=== PATIENT | male | born 1960 | race Caucasian/White ===

== ENCOUNTER 2016-12-11 10:40 | Emergency (ER) | payer MEDICAID ==
[~2016-12-11] VITALS: Ht 190.5 cm; Wt 71.2 kg
[~2016-12-11 10:40] MED LIST: ALBUTEROL PO; CALC1CAP8 PO; CHOL100018 PO; FURO20TA3 PO; LACT10SO28 PO; LACT1CAP35 PO; MULT-6 PO; NADO20TA PO; OMEP40CA6 PO; SPIR100T2 PO; SPIR50TA2 PO
[2016-12-11 10:58] VITALS: BP 102/68
[2016-12-11] MEDS ORDERED: KETOROLAC 30 MG/1 ML ONE (11:24)
[2016-12-11] MEDS ORDERED: KETOROLAC 30 MG/1 ML IM ONE (11:30)
[2016-12-11] MEDS ORDERED: OXYC10TA6 PO (11:42)
[2016-12-11] MEDS ORDERED: ONDA-39 PO (11:42)
[2016-12-11] MEDS ORDERED: SPIR25TA3 PO (11:42)
[2016-12-11] MEDS ORDERED: ESOM20CA PO (11:42)
[2016-12-11] MEDS ORDERED: PROT1PAC2 PO (11:42)
[2016-12-11] MEDS ORDERED: HYDR50TA13 PO (11:42)
[2016-12-11] MEDS ORDERED: GABA300C10 PO (11:42)
[2016-12-11] MEDS ORDERED: TIOT18CA INH (11:42)
== END 2016-12-11 13:09 | disposition home or self-care (01) ==
LOC: ED 11:45
DX: S42.001A Fracture of unspecified part of right clavicle, initial encounter for closed fracture (principal); F17.200 Nicotine dependence, unspecified, uncomplicated; I10 Essential (primary) hypertension; K21.9 Gastro-esophageal reflux disease without esophagitis; J44.9 Chronic obstructive pulmonary disease, unspecified; X50.9XXA Other and unspecified overexertion or strenuous movements or postures, initial encounter; Y93.89 Activity, other specified; Y92.096 Garden or yard of other non-institutional residence as the place of occurrence of the external cause; Y99.8 Other external cause status
CPT/HCPCS: 73000; 73030; 96372; 99284; J1885

== ENCOUNTER 2017-02-03 18:27 | Inpatient (IN) | payer MEDICAID ==
[~2017-02-03] VITALS: Ht 193 cm; Wt 72.1 kg
[~2017-02-03 18:27] MED LIST changes: +CHOL100012 PO; -CHOL100018 PO; +ESOM20CA PO; +GABA300C10 PO; +HYDR50TA13 PO; +MIDAZOLAM 1 MG/ML, 5ML ONE; +ONDA4TAB12 PO; +OXYC10TA6 PO; +PROPOFOL 10 MG/ML, 100ML IV ONE; +PROT1PAC2 PO; +SPIR25TA3 PO; +SUCCINYLCHOLINE 20 MG/ML, 10ML ONE; +TIOT18CA INH
[2017-02-03] MEDS ORDERED: SODIUM CHLORIDE 0.9% 1,000 ML IV ONE (18:44)
[2017-02-03] MEDS ORDERED: PLEASE ENTER HEIGHT AND WEIGHT MC SCH (19:00)
[2017-02-03] MEDS ORDERED: SODIUM CHLORIDE 0.9% 1,000ML IVBOLUS ONE ×2 (19:00→20:00)
[2017-02-03 19:12] LABS: HEMATOCRIT 31.9 % (39.2-51.8); HEMOGLOBIN 10.9 g/dL (13.7-18.0); WHITE BLOOD COUNT 4.4 x10^3/uL (3.4-10)
[2017-02-03 19:20] LABS: ASPARTATE AMINO TRANSFERASE 91 U/L (15-37); BLOOD UREA NITROGEN 34 mg/dL (7-18)
[2017-02-03 19:26] LABS: IS PT STATUS REG ER OR PRE ER? YES
[2017-02-03] MEDS ORDERED: CEFTRIAXONE PMX 1GM/50ML 50 ML ONE (19:43)
[2017-02-03] MEDS ORDERED: AZITHROMYCIN 500 MG in SODIUM CHLORIDE 0.9% 250 ML IVPB ONE (20:00)
[2017-02-03] MEDS ORDERED: CEFTRIAXONE PMX 1GM/50ML 50 ML IVPB ONE (20:00)
[2017-02-03] MEDS ORDERED: MVI ADULT IV SCH (20:40)
[2017-02-03] MEDS ORDERED: [UNRECOGNIZED DRUG - OTHER] IV SCH (20:40)
[2017-02-03] MEDS ORDERED: POTASSIUM CHLORIDE IV SCH (20:40)
[2017-02-03] MEDS ORDERED: FOLIC ACID IV SCH (20:40)
[2017-02-03] MEDS ORDERED: FOLIC ACID 5 MG/ML IM ONE (21:00)
[2017-02-03] MEDS ORDERED: LORazepam 2 MG/ML, 1ML IV PRN ×4 (21:00)
[2017-02-03] MEDS ORDERED: DIAZEPAM 5 MG/ML, 2ML IV ONE (21:00)
[2017-02-03] MEDS ORDERED: PHARMACY MAY ADJ FOR RENAL FX MC PRN (21:00)
[2017-02-03] MEDS ORDERED: THIAMINE 200 MG in DEXTROSE 5% 50 ML IVPB ONE (21:00)
[2017-02-03] MEDS ORDERED: ONDANSETRON 2MG/ML, 2ML IV PRN (21:00)
[2017-02-03] MEDS ORDERED: ALBUTEROL/IPRATROPIUM 2.5MG/0.5MG, 3 ML ONE (21:42)
[2017-02-03] MEDS: GABAPENTIN 300 MG CAPSULE PO SCH (21:48)
[2017-02-03] MEDS: ENOXAPARIN 40 MG/0.4 ML SQ SCH (21:49)
[2017-02-03] MEDS: LACTULOSE 10 GM/15 ML UDC PO SCH (21:49)
[2017-02-03] MEDS ORDERED: LORazepam 2 MG/ML, 1ML ONE (21:58)
[2017-02-03] MEDS: LORazepam 2 MG/ML, 1ML IV PRN (22:03)
[2017-02-03 22:51] VITALS: BP 106/72
[2017-02-03] MEDS ORDERED: LEVOFLOXACIN/PMX 750MG/150ML 150 ML IV SCH (23:30)
[2017-02-04 01:44] VITALS: BP 119/73
[2017-02-04] MEDS ORDERED: ALBUTEROL/IPRATROPIUM 2.5MG/0.5MG, 3 ML ONE (01:49)
[2017-02-04 02:22] LABS: ABG COLLECTION SITE ARTERIAL LINE
[2017-02-04 02:44] LABS: HEMATOCRIT 31.8 % (39.2-51.8); HEMOGLOBIN 10.8 g/dL (13.7-18.0); WHITE BLOOD COUNT 6.1 x10^3/uL (3.4-10)
[2017-02-04 02:55] LABS: BLOOD UREA NITROGEN 34 mg/dL (7-18)
[2017-02-04 03:01] LABS: ASPARTATE AMINO TRANSFERASE 113 U/L (15-37)
[2017-02-04] MEDS ORDERED: MIDAZOLAM 1 MG/ML, 5ML ONE (03:01)
[2017-02-04 03:24] LABS: DIFF TOTAL CELLS COUNTED 100 CELL DIFF
[2017-02-04 03:29] LABS: VERIFY COUNTS? YES
[2017-02-04 03:30] LABS: ANISOCYTOSIS 1+; POLYCHROMASIA 1+
[2017-02-04] MEDS ORDERED: SENNOSIDES 8.8 MG/5 ML ORAL SOL NG PRN (03:30)
[2017-02-04] MEDS ORDERED: PHARMACY MAY ADJ FOR RENAL FX MC SCH (03:30)
[2017-02-04] MEDS ORDERED: LACTULOSE 20 GM/30 ML UDC NG PRN (03:30)
[2017-02-04] MEDS ORDERED: MIDAZOLAM 1 MG/ML, 2ML IVPush ONE (03:30)
[2017-02-04] MEDS ORDERED: SUCCINYLCHOLINE 20 MG/ML, 10ML IVPush ONE (03:30)
[2017-02-04] MEDS ORDERED: SENNA/DOCUSATE TABLET NG PRN (03:30)
[2017-02-04] MEDS ORDERED: LIDOCAINE-MPF 1%, 2ML ENDO PRN (03:30)
[2017-02-04] MEDS ORDERED: BISACODYL 10 MG SUPP PR PRN (03:30)
[2017-02-04 03:31] LABS: POIKILOCYTOSIS 1+
[2017-02-04 03:33] LABS: LARGE PLATELETS 1+
[2017-02-04 04:14] LABS: ABG COLLECTION SITE LEFT RADIAL; COLLATERAL CIRCULATION TESTING NORMAL
[2017-02-04] MEDS: SODIUM CHLORIDE 0.9% 1,000ML IV SCH ×2 (04:19→04:58)
[2017-02-04] MEDS: PROPOFOL 100 ML IV PRN ×2 (04:20→18:25)
[2017-02-04] MEDS ORDERED: DOCUSATE 50 MG/5 ML, 10ML UDC NG PRN (04:30)
[2017-02-04] MEDS ORDERED: SODIUM CHLORIDE 0.9%, 500ML IVBOLUS ONE ×2 (04:30→10:30)
[2017-02-04] MEDS: FAMOTIDINE 20 MG/2 ML IV SCH ×2 (04:58→18:24)
[2017-02-04] MEDS ORDERED: MAGNESIUM SULFATE PMX 2GM/50ML 50 ML IV ONE (05:00)
[2017-02-04] MEDS: PIPERACILLIN/TAZO/PMX 3.375GM 50 ML IV SCH ×4 (05:21→23:57)
[2017-02-04] MEDS ORDERED: ALBUTEROL/IPRATROPIUM 2.5MG/0.5MG, 3 ML NPPB SCH (07:00)
[2017-02-04] MEDS: ALBUTEROL/IPRATROPIUM 2.5MG/0.5MG, 3 ML INLINE SCH ×5 (07:35→22:00)
[2017-02-04] MEDS: LACTULOSE 10 GM/15 ML UDC PO SCH ×3 (09:00→22:07)
[2017-02-04] MEDS: FUROSEMIDE 20 MG TABLET PO SCH (09:00)
[2017-02-04] MEDS: FLUTICASONE/VILANTEROL 200-25MCG/INH INH SCH (09:00)
[2017-02-04] MEDS: SPIRONOLACTONE 25 MG TABLET PO SCH (09:00)
[2017-02-04] MEDS: GABAPENTIN 300 MG CAPSULE PO SCH ×3 (09:00→22:06)
[2017-02-04] MEDS ORDERED: SODIUM CHLORIDE 0.9% 1,000 ML IV SCH (19:00)
[2017-02-04] MEDS: ENOXAPARIN 40 MG/0.4 ML SQ SCH (22:08)
[2017-02-05] MEDS ORDERED: SODIUM CHLORIDE 0.9% 1,000ML IVBOLUS ONE ×2 (00:30→01:30)
[2017-02-05] MEDS: ALBUTEROL/IPRATROPIUM 2.5MG/0.5MG, 3 ML INLINE SCH ×6 (02:00→22:00)
[2017-02-05] MEDS: MVI ADULT IV SCH (02:42)
[2017-02-05] MEDS: FOLIC ACID IV SCH (02:42)
[2017-02-05] MEDS: THIAMINE IV SCH (02:42)
[2017-02-05] MEDS: SODIUM CHLORIDE 0.9% IV SCH (02:42)
[2017-02-05 04:49] LABS: ABG COLLECTION SITE RIGHT RADIAL; COLLATERAL CIRCULATION TESTING NORMAL
[2017-02-05 04:52] LABS: HEMATOCRIT 30.6 % (39.2-51.8); HEMOGLOBIN 10.4 g/dL (13.7-18.0); WHITE BLOOD COUNT 9.4 x10^3/uL (3.4-10)
[2017-02-05 05:01] LABS: ASPARTATE AMINO TRANSFERASE 80 U/L (15-37); BLOOD UREA NITROGEN 30 mg/dL (7-18)
[2017-02-05] MEDS: PIPERACILLIN/TAZO/PMX 3.375GM 50 ML IV SCH ×3 (06:03→18:58)
[2017-02-05] MEDS: FAMOTIDINE 20 MG/2 ML IV SCH ×2 (06:04→18:58)
[2017-02-05 06:34] LABS: HEP B SURF. AB < 3.1 mIU/mL (0.0-10.0)
[2017-02-05] MEDS ORDERED: POTASSIUM CHLORIDE 40 MEQ in SODIUM CHLORIDE 0.9% 500 ML IV ONE (07:30)
[2017-02-05] MEDS: PROPOFOL 100 ML IV PRN ×2 (07:34→07:38)
[2017-02-05] MEDS: LACTULOSE 10 GM/15 ML UDC PO SCH ×3 (09:00→20:46)
[2017-02-05] MEDS: FLUTICASONE/VILANTEROL 200-25MCG/INH INH SCH (09:00)
[2017-02-05] MEDS: SPIRONOLACTONE 25 MG TABLET PO SCH (09:00)
[2017-02-05] MEDS: FUROSEMIDE 20 MG TABLET PO SCH (09:00)
[2017-02-05] MEDS: SODIUM CHLORIDE 0.9% 1,000 ML IV SCH ×2 (14:15→22:29)
[2017-02-06] MEDS: PIPERACILLIN/TAZO/PMX 3.375GM 50 ML IV SCH ×5 (00:27→23:54)
[2017-02-06] MEDS: ALBUTEROL/IPRATROPIUM 2.5MG/0.5MG, 3 ML INLINE SCH ×6 (02:45→22:00)
[2017-02-06] MEDS: SODIUM CHLORIDE 0.9% IV SCH (04:25)
[2017-02-06] MEDS: THIAMINE IV SCH (04:25)
[2017-02-06] MEDS: MVI ADULT IV SCH (04:25)
[2017-02-06] MEDS: FOLIC ACID IV SCH (04:25)
[2017-02-06 04:30] LABS: ABG COLLECTION SITE LEFT BRACHIAL
[2017-02-06 04:33] LABS: HEMATOCRIT 28.8 % (39.2-51.8); HEMOGLOBIN 9.9 g/dL (13.7-18.0); WHITE BLOOD COUNT 8.8 x10^3/uL (3.4-10)
[2017-02-06 04:49] LABS: ASPARTATE AMINO TRANSFERASE 78 U/L (15-37); BLOOD UREA NITROGEN 28 mg/dL (7-18)
[2017-02-06] MEDS: FAMOTIDINE 20 MG/2 ML IV SCH ×2 (06:13→19:01)
[2017-02-06] MEDS: FLUTICASONE/VILANTEROL 200-25MCG/INH INH SCH (09:00)
[2017-02-06] MEDS: FUROSEMIDE 20 MG TABLET PO SCH (09:00)
[2017-02-06] MEDS: LACTULOSE 10 GM/15 ML UDC PO SCH (09:00)
[2017-02-06] MEDS: SPIRONOLACTONE 25 MG TABLET PO SCH (09:00)
[2017-02-06] MEDS ORDERED: ALBUMIN HUMAN 25% 100 ML IV ONE (09:30)
[2017-02-06] MEDS: PROPOFOL 100 ML IV PRN ×2 (09:51→17:36)
[2017-02-06] MEDS ORDERED: FUROSEMIDE 40 MG/4 ML IV ONE (11:00)
[2017-02-06] MEDS: SODIUM CHLORIDE 0.9% 1,000 ML IV SCH ×2 (12:02→17:05)
[2017-02-07] MEDS: SODIUM CHLORIDE 0.9% 1,000 ML IV SCH ×3 (01:29→20:11)
[2017-02-07] MEDS: ALBUTEROL/IPRATROPIUM 2.5MG/0.5MG, 3 ML INLINE SCH ×6 (02:45→23:00)
[2017-02-07 04:28] LABS: HEMATOCRIT 28.5 % (39.2-51.8); HEMOGLOBIN 9.6 g/dL (13.7-18.0)
[2017-02-07 04:30] LABS: ABG COLLECTION SITE RIGHT RADIAL; COLLATERAL CIRCULATION TESTING NORMAL
[2017-02-07 04:42] LABS: BLOOD UREA NITROGEN 29 mg/dL (7-18)
[2017-02-07] MEDS: THIAMINE IV SCH (04:45)
[2017-02-07] MEDS: MVI ADULT IV SCH (04:45)
[2017-02-07] MEDS: FOLIC ACID IV SCH (04:45)
[2017-02-07] MEDS: SODIUM CHLORIDE 0.9% IV SCH (04:45)
[2017-02-07] MEDS: PIPERACILLIN/TAZO/PMX 3.375GM 50 ML IV SCH ×3 (06:13→17:42)
[2017-02-07] MEDS: LORazepam 2 MG/ML, 1ML IV PRN (08:14)
[2017-02-07] MEDS: FAMOTIDINE 20 MG/2 ML IV SCH (09:11)
[2017-02-07] MEDS ORDERED: POTASSIUM CHLORIDE 40 MEQ in SODIUM CHLORIDE 0.9% 500 ML IV ONE (10:00)
[2017-02-07] MEDS ORDERED: MAGNESIUM SULFATE PMX 4GM/100M 100 ML IV ONE (13:00)
[2017-02-07] MEDS ORDERED: SODIUM CHLORIDE 0.9%, 250ML IVBOLUS ONE (16:30)
[2017-02-07] MEDS ORDERED: NOREPINEPHRINE 4 MG in SODIUM CHLORIDE 0.9% 246 ML IV PRN (18:30)
[2017-02-07] MEDS ORDERED: SODIUM CHLORIDE 0.9%, 500ML IVBOLUS ONE (18:30)
[2017-02-07] MEDS ORDERED: POTASSIUM CHLORIDE 40 MEQ in SODIUM CHLORIDE 0.9% 100 ML IV ONE (20:00)
[2017-02-07] MEDS: PANTOPRAZOLE 40 MG IV IVPush SCH (20:12)
[2017-02-08] MEDS: FENTANYL PF 100 MCG/2ML IVPush PRN ×5 (00:03→23:40)
[2017-02-08] MEDS: PIPERACILLIN/TAZO/PMX 3.375GM 50 ML IV SCH ×5 (00:03→23:40)
[2017-02-08] MEDS: SODIUM CHLORIDE 0.9% 1,000 ML IV SCH ×4 (00:03→23:40)
[2017-02-08] MEDS: SODIUM CHLORIDE 0.9% IV SCH (02:43)
[2017-02-08] MEDS: ALBUTEROL/IPRATROPIUM 2.5MG/0.5MG, 3 ML INLINE SCH ×6 (02:43→22:00)
[2017-02-08] MEDS: THIAMINE IV SCH (02:43)
[2017-02-08] MEDS: FOLIC ACID IV SCH (02:43)
[2017-02-08] MEDS: MVI ADULT IV SCH (02:43)
[2017-02-08 04:37] LABS: BLOOD UREA NITROGEN 29 mg/dL (7-18)
[2017-02-08 04:40] LABS: ASPARTATE AMINO TRANSFERASE 62 U/L (15-37); HEMATOCRIT 28.2 % (39.2-51.8); HEMOGLOBIN 9.4 g/dL (13.7-18.0)
[2017-02-08 04:44] LABS: COLLATERAL CIRCULATION TESTING NORMAL
[2017-02-08 04:54] LABS: ABG COLLECTION SITE RIGHT RADIAL
[2017-02-08] MEDS: PANTOPRAZOLE 40 MG IV IVPush SCH ×2 (08:37→21:17)
[2017-02-08 11:33] LABS: HEMATOCRIT 28.7 % (39.2-51.8); HEMOGLOBIN 9.4 g/dL (13.7-18.0); WHITE BLOOD COUNT 6.6 x10^3/uL (3.4-10)
[2017-02-08 11:45] LABS: BLOOD UREA NITROGEN 29 mg/dL (7-18)
[2017-02-08 11:55] LABS: ASPARTATE AMINO TRANSFERASE 72 U/L (15-37)
[2017-02-08] MEDS: METOCLOPRAMIDE 5 MG/ML, 2ML IV SCH ×3 (12:31→21:18)
[2017-02-08] MEDS: POTASSIUM CHLORIDE 10% 40 MEQ/30 ML UDC PO SCH ×2 (16:27→21:17)
[2017-02-09] MEDS: ALBUTEROL/IPRATROPIUM 2.5MG/0.5MG, 3 ML INLINE SCH ×6 (02:00→22:00)
[2017-02-09] MEDS: MVI ADULT IV SCH (02:51)
[2017-02-09] MEDS: THIAMINE IV SCH (02:51)
[2017-02-09] MEDS: METOCLOPRAMIDE 5 MG/ML, 2ML IV SCH ×4 (02:51→20:22)
[2017-02-09] MEDS: FOLIC ACID IV SCH (02:51)
[2017-02-09] MEDS: SODIUM CHLORIDE 0.9% IV SCH (02:51)
[2017-02-09 03:51] VITALS: BP 105/84
[2017-02-09 04:33] LABS: ABG COLLECTION SITE RIGHT RADIAL; COLLATERAL CIRCULATION TESTING NORMAL
[2017-02-09 04:44] LABS: HEMATOCRIT 28.1 % (39.2-51.8); HEMOGLOBIN 9.4 g/dL (13.7-18.0); WHITE BLOOD COUNT 7.2 x10^3/uL (3.4-10)
[2017-02-09 04:49] LABS: BLOOD UREA NITROGEN 31 mg/dL (7-18)
[2017-02-09 04:54] LABS: ASPARTATE AMINO TRANSFERASE 97 U/L (15-37)
[2017-02-09] MEDS: PIPERACILLIN/TAZO/PMX 3.375GM 50 ML IV SCH ×4 (06:12→23:20)
[2017-02-09] MEDS: FOLIC ACID 1 MG TABLET NG SCH (09:00)
[2017-02-09] MEDS: MULTIVITAMIN LIQUID NG SCH (09:00)
[2017-02-09] MEDS: THIAMINE 100MG TABLET NG SCH (09:00)
[2017-02-09] MEDS: SODIUM CHLORIDE 0.9% 1,000 ML IV SCH ×2 (09:00→15:13)
[2017-02-09] MEDS: PANTOPRAZOLE 40 MG IV IVPush SCH ×2 (09:21→20:22)
[2017-02-09] MEDS ORDERED: LIDOCAINE 1%, 20ML ONE (11:34)
[2017-02-09] MEDS: FENTANYL PF 100 MCG/2ML IVPush PRN ×2 (12:21→23:38)
[2017-02-09] MEDS: ALBUMIN HUMAN 25% 100 ML IV SCH ×2 (13:47→22:05)
[2017-02-09 14:23] LABS: CYTOLOGY BODY FLUID RECD INTO PATHOLOGY; CYTOLOGY BODY FLUID SOURCE ASCITES FLUID
[2017-02-09 14:59] LABS: CELLS COUNTED 11; DILUTION 1; WBC SQUARES COUNTED 8
[2017-02-10] MEDS: SODIUM CHLORIDE 0.9% 1,000 ML IV SCH (00:48)
[2017-02-10] MEDS: ALBUTEROL/IPRATROPIUM 2.5MG/0.5MG, 3 ML INLINE SCH ×4 (01:12→14:32)
[2017-02-10] MEDS: METOCLOPRAMIDE 5 MG/ML, 2ML IV SCH ×4 (03:10→22:01)
[2017-02-10 04:13] LABS: ABG COLLECTION SITE RIGHT RADIAL; COLLATERAL CIRCULATION TESTING NORMAL
[2017-02-10 05:00] VITALS: BP 114/72
[2017-02-10 05:00] LABS: HEMOGLOBIN 9.1 g/dL (13.7-18.0); WHITE BLOOD COUNT 6.3 x10^3/uL (3.4-10)
[2017-02-10 05:05] LABS: BLOOD UREA NITROGEN 28 mg/dL (7-18)
[2017-02-10 05:46] LABS: ANISOCYTOSIS 1+; TARGET CELLS 1+
[2017-02-10] MEDS: PIPERACILLIN/TAZO/PMX 3.375GM 50 ML IV SCH ×3 (06:02→18:27)
[2017-02-10] MEDS: ALBUMIN HUMAN 25% 100 ML IV SCH ×3 (06:02→22:01)
[2017-02-10] MEDS: THIAMINE 100MG TABLET NG SCH (10:14)
[2017-02-10] MEDS: PANTOPRAZOLE 40 MG IV IVPush SCH ×2 (10:14→22:01)
[2017-02-10] MEDS: MULTIVITAMIN LIQUID NG SCH (10:15)
[2017-02-10] MEDS: FOLIC ACID 1 MG TABLET NG SCH (10:15)
[2017-02-10] MEDS: ALBUTEROL/IPRATROPIUM 2.5MG/0.5MG, 3 ML HHN SCH ×2 (18:30→22:17)
[2017-02-11] MEDS: PIPERACILLIN/TAZO/PMX 3.375GM 50 ML IV SCH ×4 (00:55→18:10)
[2017-02-11] MEDS: METOCLOPRAMIDE 5 MG/ML, 2ML IV SCH ×4 (03:41→22:16)
[2017-02-11] MEDS: ALBUTEROL/IPRATROPIUM 2.5MG/0.5MG, 3 ML HHN SCH ×6 (04:10→22:30)
[2017-02-11 04:37] LABS: ABG COLLECTION SITE LEFT RADIAL; COLLATERAL CIRCULATION TESTING NORMAL
[2017-02-11 04:50] LABS: BLOOD UREA NITROGEN 28 mg/dL (7-18)
[2017-02-11 05:00] VITALS: BP 107/66
[2017-02-11 05:05] LABS: HEMATOCRIT 28.7 % (39.2-51.8); HEMOGLOBIN 9.6 g/dL (13.7-18.0); WHITE BLOOD COUNT 7.7 x10^3/uL (3.4-10)
[2017-02-11] MEDS: ALBUMIN HUMAN 25% 100 ML IV SCH ×3 (06:28→22:15)
[2017-02-11] MEDS ORDERED: POTASSIUM PHOSPHATE 44 MEQ in SODIUM CHLORIDE 0.9% 500 ML IV ONE (08:00)
[2017-02-11] MEDS: PANTOPRAZOLE 40 MG IV IVPush SCH ×2 (09:36→22:16)
[2017-02-11] MEDS ORDERED: BENZOCAINE 20% SPRAY 0.5ML TP ONE (10:00)
[2017-02-11] MEDS: FOLIC ACID 1 MG TABLET NG SCH (10:46)
[2017-02-11] MEDS: THIAMINE 100MG TABLET NG SCH (10:46)
[2017-02-11] MEDS: MULTIVITAMIN LIQUID NG SCH (10:46)
[2017-02-12] MEDS: PIPERACILLIN/TAZO/PMX 3.375GM 50 ML IV SCH ×4 (00:37→17:50)
[2017-02-12] MEDS: ALBUTEROL/IPRATROPIUM 2.5MG/0.5MG, 3 ML HHN SCH ×6 (02:30→22:30)
[2017-02-12 04:32] LABS: HEMATOCRIT 27.6 % (39.2-51.8); HEMOGLOBIN 9.1 g/dL (13.7-18.0); WHITE BLOOD COUNT 7.4 x10^3/uL (3.4-10)
[2017-02-12] MEDS: METOCLOPRAMIDE 5 MG/ML, 2ML IV SCH ×3 (04:40→15:07)
[2017-02-12 04:42] LABS: BLOOD UREA NITROGEN 24 mg/dL (7-18)
[2017-02-12 04:48] LABS: ANISOCYTOSIS 1+; TARGET CELLS 1+
[2017-02-12] MEDS: ALBUMIN HUMAN 25% 100 ML IV SCH ×3 (05:58→22:13)
[2017-02-12] MEDS: MULTIVITAMIN LIQUID NG SCH (09:06)
[2017-02-12] MEDS: FOLIC ACID 1 MG TABLET NG SCH (09:06)
[2017-02-12] MEDS: THIAMINE 100MG TABLET NG SCH (09:06)
[2017-02-12] MEDS: LACTULOSE 20 GM/30 ML UDC PO SCH ×3 (09:26→22:13)
[2017-02-12] MEDS ORDERED: FUROSEMIDE 20 MG/2 ML IV ONE (15:30)
[2017-02-13] MEDS: PIPERACILLIN/TAZO/PMX 3.375GM 50 ML IV SCH ×4 (00:49→18:42)
[2017-02-13] MEDS: ALBUTEROL/IPRATROPIUM 2.5MG/0.5MG, 3 ML HHN SCH ×6 (02:30→22:30)
[2017-02-13 04:47] LABS: HEMATOCRIT 25.9 % (39.2-51.8); HEMOGLOBIN 8.7 g/dL (13.7-18.0); WHITE BLOOD COUNT 7.5 x10^3/uL (3.4-10)
[2017-02-13 04:53] LABS: BLOOD UREA NITROGEN 24 mg/dL (7-18)
[2017-02-13] MEDS: ALBUMIN HUMAN 25% 100 ML IV SCH ×3 (05:19→23:09)
[2017-02-13 05:51] LABS: DIFF TOTAL CELLS COUNTED 100 CELL DIFF
[2017-02-13 05:53] LABS: VERIFY COUNTS? YES
[2017-02-13 05:54] LABS: ANISOCYTOSIS 1+; POLYCHROMASIA 1+
[2017-02-13 05:55] LABS: TARGET CELLS 1+
[2017-02-13] MEDS ORDERED: MAGNESIUM SULFATE PMX 4GM/100M 100 ML IV ONE (08:00)
[2017-02-13] MEDS: THIAMINE 100MG TABLET NG SCH (09:33)
[2017-02-13] MEDS: LACTULOSE 20 GM/30 ML UDC PO SCH ×3 (09:33→23:09)
[2017-02-13] MEDS: MULTIVITAMIN LIQUID NG SCH (09:33)
[2017-02-13] MEDS: FOLIC ACID 1 MG TABLET NG SCH (09:33)
[2017-02-13] MEDS ORDERED: FUROSEMIDE 20 MG/2 ML IV ONE (15:30)
[2017-02-14] MEDS: PIPERACILLIN/TAZO/PMX 3.375GM 50 ML IV SCH ×4 (00:59→18:53)
[2017-02-14] MEDS: ALBUTEROL/IPRATROPIUM 2.5MG/0.5MG, 3 ML HHN SCH ×6 (03:20→22:29)
[2017-02-14 04:41] LABS: HEMATOCRIT 25.5 % (39.2-51.8); HEMOGLOBIN 8.5 g/dL (13.7-18.0); WHITE BLOOD COUNT 7.7 x10^3/uL (3.4-10)
[2017-02-14 04:46] LABS: BLOOD UREA NITROGEN 26 mg/dL (7-18)
[2017-02-14 05:06] LABS: ANISOCYTOSIS 1+; POLYCHROMASIA 1+
[2017-02-14 05:07] LABS: TARGET CELLS 1+
[2017-02-14 05:48] VITALS: BP 120/80
[2017-02-14] MEDS: ALBUMIN HUMAN 25% 100 ML IV SCH ×3 (06:23→21:32)
[2017-02-14] MEDS ORDERED: POTASSIUM CHLORIDE 20 MEQ in SODIUM CHLORIDE 0.9% 250 ML IV ONE (07:00)
[2017-02-14] MEDS ORDERED: POTASSIUM CHLORIDE 20 MEQ TAB.ER.PRT NG ONE ×2 (07:00→11:00)
[2017-02-14] MEDS ORDERED: POTASSIUM CHLORIDE PMX 100 ML IV ONE ×2 (07:00→08:30)
[2017-02-14] MEDS ORDERED: FUROSEMIDE 20 MG/2 ML IV ONE (07:30)
[2017-02-14] MEDS: MULTIVITAMIN LIQUID NG SCH (08:20)
[2017-02-14] MEDS: FOLIC ACID 1 MG TABLET NG SCH (08:20)
[2017-02-14] MEDS: THIAMINE 100MG TABLET NG SCH (08:20)
[2017-02-14] MEDS: LACTULOSE 20 GM/30 ML UDC PO SCH ×3 (08:20→21:33)
[2017-02-14] MEDS ORDERED: OXYcodone 5 MG/5 ML ORAL.SOL UDC PO ONE (10:00)
[2017-02-14] MEDS ORDERED: FUROSEMIDE 20 MG/2 ML ONE (15:38)
[2017-02-14] MEDS ORDERED: POTASSIUM CHLORIDE 20 MEQ TAB.ER.PRT PO ONE (16:30)
[2017-02-14] MEDS: PANTOPRAZOLE 40 MG IV IVPush SCH (17:23)
[2017-02-15] MEDS: PIPERACILLIN/TAZO/PMX 3.375GM 50 ML IV SCH ×4 (00:29→20:04)
[2017-02-15] MEDS: ALBUTEROL/IPRATROPIUM 2.5MG/0.5MG, 3 ML HHN SCH ×6 (02:40→22:55)
[2017-02-15 04:40] LABS: ASPARTATE AMINO TRANSFERASE 55 U/L (15-37); BLOOD UREA NITROGEN 27 mg/dL (7-18); HEMATOCRIT 23.3 % (39.2-51.8); HEMOGLOBIN 7.7 g/dL (13.7-18.0); WHITE BLOOD COUNT 7.4 x10^3/uL (3.4-10)
[2017-02-15 04:46] VITALS: BP 116/89
[2017-02-15] MEDS: ALBUMIN HUMAN 25% 100 ML IV SCH ×3 (06:03→22:03)
[2017-02-15] MEDS: LACTULOSE 20 GM/30 ML UDC PO SCH (07:50)
[2017-02-15] MEDS: FOLIC ACID 1 MG TABLET NG SCH (07:51)
[2017-02-15] MEDS: MULTIVITAMIN LIQUID NG SCH (07:51)
[2017-02-15] MEDS: PANTOPRAZOLE 40 MG IV IVPush SCH (07:51)
[2017-02-15] MEDS: THIAMINE 100MG TABLET NG SCH (07:51)
[2017-02-15] MEDS ORDERED: MAGNESIUM SULFATE PMX 2GM/50ML 50 ML IV ONE (09:00)
[2017-02-15] MEDS ORDERED: POTASSIUM PHOSPHATE 44 MEQ in SODIUM CHLORIDE 0.9% 500 ML IV ONE (09:00)
[2017-02-15] MEDS ORDERED: LIDOCAINE 2%, 20ML ONE (10:01)
[2017-02-15] MEDS ORDERED: SODIUM CHLORIDE 0.9%, 500ML IVBOLUS ONE (13:30)
[2017-02-15] MEDS ORDERED: LACTULOSE 20 GM/30 ML UDC PO PRN (15:00)
[2017-02-16] MEDS: PIPERACILLIN/TAZO/PMX 3.375GM 50 ML IV SCH ×2 (00:30→06:31)
[2017-02-16 04:03] VITALS: BP 119/73
[2017-02-16] MEDS: ALBUTEROL/IPRATROPIUM 2.5MG/0.5MG, 3 ML HHN SCH ×3 (04:30→10:40)
[2017-02-16] MEDS ORDERED: SODIUM CHLORIDE 0.45%, 1,000ML IVBOLUS ONE ×2 (04:30→05:00)
[2017-02-16 05:10] LABS: BLOOD UREA NITROGEN 31 mg/dL (7-18)
[2017-02-16] MEDS: ALBUMIN HUMAN 25% 100 ML IV SCH (05:33)
[2017-02-16 06:15] LABS: WHITE BLOOD COUNT 6.5 x10^3/uL (3.4-10)
[2017-02-16 06:18] LABS: HEMATOCRIT 21.1 % (39.2-51.8)
[2017-02-16 07:00] LABS: DIFF TOTAL CELLS COUNTED 100 CELL DIFF
[2017-02-16 07:05] LABS: ANISOCYTOSIS 1+; VERIFY COUNTS? YES
[2017-02-16 07:06] LABS: TARGET CELLS 1+
[2017-02-16] MEDS: FOLIC ACID 1 MG TABLET NG SCH (07:35)
[2017-02-16] MEDS: MULTIVITAMIN LIQUID NG SCH (07:35)
[2017-02-16] MEDS: PANTOPRAZOLE 40 MG IV IVPush SCH (07:35)
[2017-02-16] MEDS: THIAMINE 100MG TABLET NG SCH (07:35)
[2017-02-16] MEDS ORDERED: morphine SULFATE 10 MG/ML, 1ML ONE (12:36)
[2017-02-16] MEDS: MORPHINE SULFATE 4 MG/ML, 1ML IV PRN ×4 (12:40→19:53)
[2017-02-16] MEDS ORDERED: ACETAMINOPHEN 650 MG SUPP PR PRN (13:00)
[2017-02-16] MEDS ORDERED: ATROPINE OPHTH SOLN 1%, 5ML BC PRN (13:00)
[2017-02-16] MEDS ORDERED: BISACODYL 10 MG SUPP PR PRN (13:00)
[2017-02-16] MEDS ORDERED: SCOPOLAMINE PATCH, 1MG PATCH.TD72 TD SCH (13:00)
[2017-02-16] MEDS ORDERED: ONDANSETRON 2MG/ML, 2ML IV PRN (13:00)
[2017-02-16] MEDS ORDERED: SODIUM CHLORIDE FLUSH 10ML SYR IVF PRN (13:00)
[2017-02-16] MEDS ORDERED: LACTULOSE 10 GM/15 ML UDC PO PRN (13:00)
[2017-02-16] MEDS ORDERED: ACETAMINOPHEN 325 MG TABLET PO PRN (13:00)
[2017-02-16] MEDS: LORazepam 2 MG/ML, 1ML IV PRN ×3 (13:25→21:11)
== END 2017-02-16 23:50 | disposition expired | DRG 208 ==
LOC: ED 20:25 → EDIP 20:31 → ED 20:58 → 3NE 22:34 → CCU 02-04 02:01 → 3NW 02-16 13:23
PROVIDERS: ADMIT Internal Medicine; ATTEND Internal Medicine
PROC: 0T9B70Z Drainage of Bladder with Drainage Device, Via Natural or Artificial Opening (ICD-10-PCS; principal; 2017-02-04)
PROC: 02HV33Z Insertion of Infusion Device into Superior Vena Cava, Percutaneous Approach (ICD-10-PCS; 2017-02-07)
PROC: B548ZZA Ultrasonography of Superior Vena Cava, Guidance (ICD-10-PCS; 2017-02-07)
PROC: 5A1945Z Respiratory Ventilation, 24-96 Consecutive Hours (ICD-10-PCS; 2017-02-09)
PROC: 0W9G30Z Drainage of Peritoneal Cavity with Drainage Device, Percutaneous Approach (ICD-10-PCS; 2017-02-09)
PROC: 0BH17EZ Insertion of Endotracheal Airway into Trachea, Via Natural or Artificial Opening (ICD-10-PCS; 2017-02-09)
DX: J69.0 Pneumonitis due to inhalation of food and vomit (principal); J96.01 Acute respiratory failure with hypoxia; E43 Unspecified severe protein-calorie malnutrition; G92 Toxic encephalopathy; Z99.11 Dependence on respirator [ventilator] status; J81.1 Chronic pulmonary edema; R78.81 Bacteremia; I85.00 Esophageal varices without bleeding; E51.2 Wernicke's encephalopathy; F10.988 Alcohol use, unspecified with other alcohol-induced disorder; J98.11 Atelectasis; N39.0 Urinary tract infection, site not specified; W06.XXXA Fall from bed, initial encounter; E87.70 Fluid overload, unspecified; E83.39 Other disorders of phosphorus metabolism; E83.42 Hypomagnesemia; E87.6 Hypokalemia; F17.200 Nicotine dependence, unspecified, uncomplicated; F29 Unspecified psychosis not due to a substance or known physiological condition; I10 Essential (primary) hypertension; J44.9 Chronic obstructive pulmonary disease, unspecified; K21.9 Gastro-esophageal reflux disease without esophagitis; K70.31 Alcoholic cirrhosis of liver with ascites; N28.9 Disorder of kidney and ureter, unspecified; Z66 Do not resuscitate; Z99.81 Dependence on supplemental oxygen
CPT/HCPCS: 31624; 36415; 36569; 36600; 49083; 70450; 71010; 74000; 76700; 76937; 77001; 80048; 80053; 81001; 82010; 82140; 82607; 82746; 82803; 82962; 83605; 83690; 83735; 84100; 84145; 84443; 84478; 84484; 85025; 85610; 85730; 86706; 86803; 87040; 87070; 87077; 87081; 87086; 87186; 87205; 87340; 88112; 89051; 93005; 94002; 94003; 94640; 96365; 96366; 96367; 96372; 96375; J0456; J0696; J1650; J1940; J1956; J2250; J2543; J2704; J3010; J3411; J3475; J3480; J3490; J7620; P9047; C1751; C9113; J0330; J2060; J2765; J7030; J7040; J7050; S0028